=== PATIENT | male | born 1955 | race Caucasian/White ===

== ENCOUNTER 2020-08-20 16:00 | Inpatient (IN) | payer MEDICARE ==
[2020-08-20] MEDS ORDERED: METHYLPREDNISOLONE INJ 125 MG/2 ML SDV IV ONE (17:17)
[2020-08-20] MEDS ORDERED: IPRATROPIUM/ALBUTEROL 0.5-2.5 MG/3 ML AMPUL NEB ONE (17:17)
--- NOTE | 2020-08-20 17:19 | ER Document Report ---
ED Medical Screen (RME) - General Chief Complaint: Shortness Of Breath Stated Complaint: SHORTNESS OF BREATH,COUGH Time Seen by Provider: 08/20/20 17:03 Mode of Arrival: Wheelchair Information source: Patient Notes: Patient is a 64-year-old male comes emergency room complaining of increasing shortness of breath. He is accompanied by his who states that approximately 11 days ago he was having fevers he had a coronavirus test done and found out he was positive for coronavirus 11 days ago. Patient states he has felt really bad over the past several days he had fever up until 2 days ago 1 that seems to have gone away. He states his breathing has gotten increasingly worse. He is having increased shortness of breath nonproductive cough. Short distance of walking makes him short of breath as well. Patient does state that he is up-to-date on his flu vaccine as well as his pneumonia vaccine. Patient is an insulin-dependent diabetic and also uses Trulicity. Has other history of hypertension as well. Patient stopped smoking 15 years ago. Patient is also currently taking amoxicillin. These primary care provider called him in Augmentin for sinus disease that he had approximately 4 5 days ago. Physical examination: Patient is a well-nourished well-developed 64-year-old male though no apparent distress does appear ill. Cardiac: Patient has a tachycardic rate on monitor of 105 bpm. Lungs: Bilateral breath sounds are decreased throughout patient has faint inspiratory expiratory wheeze noted. No coarse rhonchi is heard on auscultation at this time. Abdomen: Bowel sounds present 4 quads nontender to palpate. I have greeted and performed a rapid initial assessment of this patient. A comprehensive ED assessment and evaluation of the patient, analysis of test results and completion of the medical decision making process will be conducted by additional ED providers. Dictation of this chart was performed using voice recognition software; therefore, there may be some unintended grammatical errors. Physical Exam - Vital signs Vitals: Temp Pulse Resp BP Pulse Ox 98.3 F 105 H 20 118/71 90 L 08/20/20 17:01 08/20/20 17:01 08/20/20 17:01 08/20/20 17:01 08/20/20 17:01 Course - Vital Signs Vital signs: Temp Pulse Resp BP Pulse Ox 98.3 F 105 H 20 118/71 90 L 08/20/20 17:01 08/20/20 17:01 08/20/20 17:01 08/20/20 17:01 08/20/20 17:01
--- NOTE | 2020-08-20 18:28 | RADIOLOGY REPORT (SQ) ---
EXAM DESCRIPTION: CHEST SINGLE VIEW IMAGES COMPLETED DATE/TIME: 08/20/2020 6:18 pm REASON FOR STUDY: SOB/Hypoxic/COVID+ COMPARISON: None. EXAM PARAMETERS: NUMBER OF VIEWS: One view. TECHNIQUE: Single frontal radiographic view of the chest acquired. RADIATION DOSE: NA LIMITATIONS: None. FINDINGS: LUNGS AND PLEURA: Parenchymal opacities at the left base. Right lung is clear. No effusi ons. MEDIASTINUM AND HILAR STRUCTURES: No masses. Contour normal. HEART AND VASCULAR STRUCTURES: Heart normal in size. Normal vasculature. BONES: No acute findings. HARDWARE: None in the chest. OTHER: No other significant finding. IMPRESSION: Left basilar opacities consistent with covid 19. TECHNICAL DOCUMENTATION: JOB ID: [id number] [id number]- All Rights Reserved Reading location - IP/workstation name: [email or web address]
--- NOTE | 2020-08-20 19:08 | EKG REPORT ---
SEVERITY:- BORDERLINE ECG - SINUS RHYTHM BORDERLINE IVCD WITH LAD : Confirmed by: Sergey Bolivar MD 20-Aug-2020 19:06:50
[2020-08-20 19:34] LABS: ABSOLUTE EOSINOPHILS # (AUTO) 0.1 10^3/uL (0.0-0.6); ABSOLUTE LYMPHOCYTES (AUTO) 0.6 10^3/uL (0.5-4.7); ABSOLUTE MONOCYTES (AUTO) 0.3 10^3/uL (0.1-1.4); ABSOLUTE NEUT (AUTO) 4.5 10^3/uL (1.7-8.2); BASOPHILS % (AUTO) 0.1 % (0-2); EOSINOPHILS % (AUTO) 1.5 % (0-6); HEMATOCRIT 40.1 % (37.9-51.0); HEMOGLOBIN 13.4 g/dL (13.5-17.0); LYMPHOCYTES % (AUTO) 10.8 % (13-45); MEAN CORPUSCULAR HEMOGLOBIN 26.8 pg (27.0-33.4); MEAN CORPUSCULAR HGB CONC 33.5 g/dL (32.0-36.0); MEAN CORPUSCULAR VOLUME 80 fl (80-97); MONOCYTES % (AUTO) 5.5 % (3-13); PLATELET COUNT 307 10^3/uL (150-450); RED BLOOD COUNT 5.01 10^6/uL (4.35-5.55); RED CELL DISTRIBUTION WIDTH 15.8 % (11.5-14.0); SEGMENTED NEUTROPHILS % (AUTO) 82.1 % (42-78); TOTAL CELLS COUNTED % (AUTO) 100 %; WHITE BLOOD COUNT 5.5 10^3/uL (4.0-10.5)
[2020-08-20] MEDS ORDERED: NORMAL SALINE 1000 ML 1,000 ML IV ONE (19:46)
[2020-08-20 19:48] LABS: ALBUMIN 3.6 g/dL (3.5-5.0); ALKALINE PHOSPHATASE 75 U/L (38-126); ANION GAP 11 (5-19); ASPARTATE AMINO TRANSFERASE 29 U/L (17-59); BILIRUBIN,DIRECT 0.2 mg/dL (0.0-0.4); BILIRUBIN,TOTAL 0.7 mg/dL (0.2-1.3); BLOOD UREA NITROGEN 15 mg/dL (7-20); CALCIUM 8.4 mg/dL (8.4-10.2); CARBON DIOXIDE 24 mmol/L (22-30); CHLORIDE 96 mmol/L (98-107); GLUCOSE 104 mg/dL (75-110); TOTAL PROTEIN 6.7 g/dL (6.3-8.2)
--- NOTE | 2020-08-20 19:51 | ER Document Report ---
ED Respiratory Problem - General Chief Complaint: Shortness Of Breath Stated Complaint: SHORTNESS OF BREATH,COUGH Time Seen by Provider: 08/20/20 17:03 Mode of Arrival: Wheelchair - HPI Notes: Patient is a 64-year-old male with a past medical history of cardiac stent placement who presents with shortness of breath and cough. Patient states he has had shortness of breath for over a week. He was Covid tested last Sunday and was just called with a positive result. His also had Covid. States he was doing well but the past several days, his shortness of breath worsened. He is very short of breath with ambulation. He is fatigued. He has chills. He had a T-max of 101. He denies any chest pain. He has had some diarrhea. No nausea or vomiting. No loss of taste or smell. - Related Data Allergies/Adverse Reactions: No Known Allergies Allergy (Verified 08/20/20 19:10) Past Medical History - General Information source: Patient - Social History Smoking Status: Former Smoker Family History: Reviewed & Not Pertinent - Past Medical History Cardiac Medical History: Reports: Hx Hypertension Endocrine Medical History: Reports: Hx Diabetes Mellitus Type 2 Past Surgical History: Reports: Hx Cardiac Surgery - stents x2 Review of Systems - Review of Systems Notes: CONSTITUTIONAL: Positive for fever, chills, fatigue. SKIN: No rash. HENT: No sinus congestion. EYES: No recent vision problems or eye pain. CARDIOVASCULAR: No chest pain or edema. RESPIRATORY: Positive for cough and shortness of breath. GASTROINTESTINAL: No abdominal pain. Positive for diarrhea. GENITOURINARY: No dysuria. MUSCULOSKELETAL: No joint pain or swelling. LYMPHATIC: No swollen glands. NEUROLOGIC: No seizures. No headache, focal weakness or sensory changes. HEMATOLOGIC: No unusual bruising or bleeding. PSYCHIATRIC: No depression or anxiety. Physical Exam - Vital signs Vitals: Temp Pulse Resp BP Pulse Ox 98.3 F 105 H 20 118/71 90 L 08/20/20 17:01 08/20/20 17:01 08/20/20 17:01 08/20/20 17:01 08/20/20 17:01 - General Notes: VITAL SIGNS: Hypoxic on room air. GENERAL: No acute distress, non-toxic appearance. HEAD: Normal with no signs of head trauma. EYES: EOMI, conjunctiva normal, no discharge. EARS: Hearing grossly intact. NECK: Normal range of motion, no tenderness CHEST: Clear breath sounds bilaterally. No wheezes, rales, or rhonchi. CARDIAC: Regular rate and rhythm. S1 and S2, without murmurs, gallops, or rubs. VASCULAR: No Edema. ABDOMEN: Normal and soft with no tenderness, no masses or pulsatile masses. MUSCULOSKELETAL: Good range of motion of all major joints. Extremities without clubbing, cyanosis or edema. NEUROLOGICAL: Alert and oriented x 3. No focal sensory or strength deficits. Speech normal. Follows commands appropriately. SKIN: Normal appearance with no rashes or lesions. Course - Re-evaluation Re-evalutation: 08/20/20 19:51 Patient's x-ray is consistent with Covid. He is on 4 L nasal cannula. He is alert and oriented and mentating appropriately. Patient will need to be admitted to the hospital for treatment. Him and his are very agreeable to this. I will discuss with the hospitalist. He received steroids from triage. Patient will given a small fluid bolus as he states he has not drank anything all day. Awaiting hospitalist evaluation. Patient will be signed out to my colleague at the end of my shift. Did have a slightly elevated troponin. He has no chest pain. His EKG is unremarkable. I will repeat a troponin. 08/20/20 20:29 - Vital Signs Vital signs: Temp Pulse Resp BP Pulse Ox 97.4 F 59 L 22 H 108/58 L 90 L 08/26/20 13:39 08/26/20 13:39 08/26/20 13:39 08/26/20 13:39 08/26/20 13:39 - Laboratory Result Diagrams: 08/26/20 05:21 08/26/20 05:21 Laboratory results interpreted by me: 08/20/20 08/20/20 08/20/20 18:58 18:58 18:58 Hgb 13.4 L MCH 26.8 L RDW 15.8 H Lymph % (Auto) 10.8 L Seg Neutrophils % 82.1 H D-Dimer Sodium 131.1 L Chloride 96 L POC Glucose COVID-19 ([facility]) DETECTED A 08/20/20 08/20/20 18:58 21:49 Hgb MCH RDW Lymph % (Auto) Seg Neutrophils % D-Dimer 0.82 H Sodium Chloride POC Glucose 149 H COVID-19 ([facility]) - Diagnostic Test Radiology reviewed: Image reviewed, Reports reviewed - EKG Interpretation by Me EKG shows normal: Sinus rhythm Rate: Normal Rhythm: NSR When compared to previous EKG there are: Previous EKG unavailable Discharge - Discharge Clinical Impression: Acute respiratory failure due to COVID-19 Condition: Stable Disposition: ADMITTED INPATIENT Admitting Provider: Steven
[2020-08-20 19:55] LABS: A TYPE INFLUENZA AG NEGATIVE (NEGATIVE); B INFLUENZA AG NEGATIVE (NEGATIVE)
[2020-08-20] MEDS ORDERED: ONDANSETRON HCL INJ/PF 4 MG/2 ML SDV IV PRN (20:35)
[2020-08-20] MEDS ORDERED: ACETAMINOPHEN 325 MG TABLET PO PRN (20:35)
[2020-08-20] MEDS ORDERED: AZITHROMYCIN 500 MG in DEXTROSE 5%-WATER 250 ML IV SCH (21:00)
[2020-08-20] MEDS ORDERED: GLUCAGON,HUMAN RECOMB 1 MG INJ IM PRN (21:09)
[2020-08-20] MEDS ORDERED: DEXTROSE 50%-WATER 25 GM/50 ML DISP.SYRIN IV PRN ×2 (21:09)
[2020-08-20] MEDS ORDERED: DEXTROSE 40% GEL 15 GM TUBE PO PRN ×2 (21:09)
--- NOTE | 2020-08-20 21:09 | PDOC H&P ---
History of Present Illness Admission Date/PCP: 08/20/2020 Dr. Cerda in [place] History of Present Illness: FERCHO JOE is a 64 year old male with a history of coronary artery disease, [id number]-[id number] type 2 diabetes mellitus, and hypertension, who smoked for over 35 years but quit 15 years ago, who presents with approximately 1 week of progressive shortness of breath. He said that his tested positive for coronavirus almost 3 weeks ago, and he had been quarantined at home with her at him been checking his temperature every day. He said that a week ago this past Sunday, 12 days ago at this point, he checked his temperature and even though he did not have a fever it was elevated a bit. He went to [facility] and got tested. He said for what ever reason he did not get his test results until this past Sunday, 8 days after he was tested. At that time he was still feeling pretty much okay. He said that he noted a little bit of shortness of breath with exertion but at the time he found out his positive result he still was doing pretty well. No fevers at that time. He said that over the past 5 days he has developed worsening shortness of breath with exertion to the point that he gets short of breath just walking a short distance to his bathroom from his bedroom. He said when he is at rest he feels fine. He has also had some nausea, vomiting, and diarrhea. He was also put on Augmentin a few days ago for possible otitis media, but he said he had had some vomiting a nd diarrhea before he started the Augmentin. He is not really having any nausea now. He has not experienced any body aches or muscle soreness. He has not noticed a loss of sense of taste or smell. When he got to the ER he had an SPO2 of 86% on room air. He was also mildly tachycardic. He said that he had a history of 2 cardiac stents, the most recent was in March of this year. He was supposed to be on aspirin plus some other antiplatelet agent, he does not know the name of it, but he knows he supposed to be on it for at least 1 year with the aspirin. He said he also takes metoprolol twice a day and lisinopril once a day. For his diabetes he takes Trulicity and Synjarda. Past Medical History Cardiac Medical History: Reports: Coronary Artery Disease, Hypertension Endocrine Medical History: Reports: Diabetes Mellitus Type 2 Past Surgical History Past Surgical History: Reports: Coronary Stent - X2, most recent March 2020 Social History Smoking Status: Former Smoker Family History Family History: Reviewed & Not Pertinent Parental Family History Reviewed: Yes Children Family History Reviewed: Yes Sibling(s) Family History Reviewed.: Yes Medication/Allergy Home Medications: Amoxicillin/Potassium Clav [Amox-Clav 875-125 mg Tablet] 1 each PO Q12 MDD FILLED 08/17 FOR 14 DAY SUPPLY 08/20/20 Aspirin [Ecotrin 81 mg EC Tablet] 81 mg PO DAILY 08/20/20 Atorvastatin Calcium [Lipitor 40 mg Tablet] 40 mg PO QHS 08/20/20 Cyclobenzaprine HCl 5 mg PO TIDP PRN 08/20/20 Dulaglutide [Trulicity] 0.75 mg SUBCUT KOLB@1000 08/20/20 Empagliflozin/Metformin HCl [Synjardy Xr 12.5-1,000 mg Tab] 2 each PO QAM 08/20/20 Lisinopril [Prinivil 10 mg Tablet] 20 mg PO DAILY 08/20/20 Metoprolol Tartrate [Lopressor 25 mg Tablet] 12.5 mg PO Q12 08/20/20 Nitroglycerin [Nitrostat 0.4 mg (1/150 Gr) Tabs 25/Bottle] 1 tab SL Q5MP PRN 08/20/20 Omeprazole 40 mg PO BID 08/20/20 Prasugrel HCl [Effient 10 mg Tablet] 10 mg PO DAILY 08/20/20 Allergies/Adverse Reactions: No Known Allergies Allergy (Verified 08/20/20 19:10) Review of Systems All systems: reviewed and no additional remarkable complaints except as stated - All systems were reviewed and were negative except as noted in the HPI Physical Exam Vital Signs: Temp Pulse Resp BP Pulse Ox 98.3 F 105 H 13 112/83 91 L 08/20/20 17:01 08/20/20 17:01 08/20/20 19:01 08/20/20 19:00 08/20/20 19:01 Intake & Output 08/19/20 08/20/20 08/21/20 06:59 06:59 06:59 Weight 99.79 kg General appearance: PRESENT: no acute distress, cooperative Head exam: PRESENT: atraumatic, normocephalic Eye exam: PRESENT: EOMI, PERRLA. ABSENT: conjunctival injection, nystagmus, scleral icterus Ear exam: PRESENT: normal external ear exam Mouth exam: PRESENT: dry mucosa, neck supple Neck exam: PRESENT: full ROM. ABSENT: carotid bruit, JVD, lymphadenopathy, meningismus, tenderness, thyromegaly Respiratory exam: PRESENT: clear to auscultation dilip, symmetrical, unlabored. ABSENT: accessory muscle use, chest wall tenderness, prolonged expiratory phas, rhonchi, tachypnea, wheezes Cardiovascular exam: PRESENT: +S1, +S2, tachycardia Pulses: PRESENT: normal carotid pulses Vascular exam: PRESENT: normal capillary refill GI/Abdominal exam: PRESENT: normal bowel sounds, soft. ABSENT: distended, guarding, rebound, tenderness Extremities exam: ABSENT: clubbing, pedal edema Musculoskeletal exam: PRESENT: normal inspection. ABSENT: deformity Neurological exam: PRESENT: alert, awake, oriented to person, oriented to place, oriented to time, oriented to situation, CN II-XII grossly intact. ABSENT: motor sensory deficit Psychiatric exam: PRESENT: appropriate affect, normal mood Skin exam: PRESENT: dry, warm Results Laboratory Results: 08/20/20 18:58 08/20/20 18:58 08/20/20 08/20/20 18:58 18:58 WBC 5.5 RBC 5.01 Hgb 13.4 L Hct 40.1 MCV 80 MCH 26.8 L MCHC 33.5 RDW 15.8 H Plt Count 307 Seg Neutrophils % 82.1 H Sodium 131.1 L Potassium 4.0 Chloride 96 L Carbon Dioxide 24 Anion Gap 11 BUN 15 Creatinine 0.81 Est GFR ( Amer) > 60 Glucose 104 Calcium 8.4 Total Bilirubin 0.7 AST 29 Alkaline Phosphatase 75 Total Protein 6.7 Albumin 3.6 08/20/20 18:58 Troponin I 0.042 Impressions: Chest X-Ray 08/20/20 17:16 IMPRESSION: Left basilar opacities consistent with covid 19. Assessment and Plan - Diagnosis (1) Acute respiratory failure due to COVID-19 Is this a current diagnosis for this admission?: Yes (2) Pneumonia due to COVID-19 virus Is this a current diagnosis for this admission?: Yes (3) Coronary artery disease Qualifiers: Coronary Disease-Associated Artery/Lesion type: [place] artery [place] vs. 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 senior care use Diabetes mellitus complication status: with circulatory complication Diabetes mellitus complication detail: with other circulatory complications Qualified Code(s): E11.59 - Type 2 diabetes mellitus with other circulatory complications Is this a current diagnosis for this admission?: Yes (5) Hypertension Qualifiers: Hypertension type: essential hypertension Qualified Code(s): I10 - Essential (primary) hypertension Is this a current diagnosis for this admission?: Yes - Plan Summary Summary: With his positive test, chest x-ray findings, and hypoxemia, will start him on Decadron and remdesivir. He already got a dose of Solu-Medrol in the ER so we will start his Decadron tomorrow morning. We will go ahead and see if we can get his remdesivir started tonight. We will also put him empirically on Rocephin and azithromycin to cover for possible coexisting bacterial pneumonia, but I think this is less likely. We will check a D-dimer to see if he needs therapeutic anticoagulation, will start DVT prophylaxis for now. Once his home medications get entered into the EMR by pharmacy we will get those ordered for him. Currently on 4 L per nasal cannula. Will monitor pulse oximetry to assess for changes in his oxygen demand. We will cover him with a sliding scale for now. - Time Time Spent with patient: 35 or more minutes Anticipated Discharge Disposition: Unknown Anticipated Discharge Timeframe: Unknown - Inpatient Certification Based on my medical assessment, after consideration of the patient's comorbidities, presenting symptoms, or acuity I expect that the services needed warrant INPATIENT care.: Yes I certify that my determination is in accordance with my understanding of Medicare's requirements for reasonable and necessary INPATIENT services [42 CFR 412.3e].: Yes Medical Necessity: Significant Comorbidiites Make Outpatient Treatment Too Risky, Need Close Monitoring Due to Risk of Patient Decompensation, Need For Continuous Telemetry Monitoring, Need for IV Antibiotics, Risk of Complication if Not Cared For in Hospital
[2020-08-20] MEDS: CEFTRIAXONE 1 GM/D5W RTU 1 GM/50 ML RTUPB IV SCH (21:15)
[2020-08-20] MEDS ORDERED: AZITHROMYCIN INJ 500 MG VIAL IV ONE (21:44)
[2020-08-20] MEDS: AZITHROMYCIN 500 MG in DEXTROSE 5%-WATER 250 ML IV SCH (21:56)
[2020-08-20] MEDS: INSULIN LISPRO 100 UNIT/ML 3 ML VIAL SUBCUT SCH (21:59)
[2020-08-20] MEDS ORDERED: REMDESIVIR 100 MG in NORMAL SALINE 250 ML IV SCH (22:00)
[2020-08-20] MEDS ORDERED: REMDESIVIR 200 MG in NORMAL SALINE 250 ML IV ONE (22:30)
[2020-08-21 06:24] LABS: HEMATOCRIT 36.3 % (37.9-51.0); HEMOGLOBIN 12.4 g/dL (13.5-17.0); MEAN CORPUSCULAR HEMOGLOBIN 27.3 pg (27.0-33.4); MEAN CORPUSCULAR HGB CONC 34.2 g/dL (32.0-36.0); MEAN CORPUSCULAR VOLUME 80 fl (80-97); PLATELET COUNT 250 10^3/uL (150-450); RED BLOOD COUNT 4.56 10^6/uL (4.35-5.55); RED CELL DISTRIBUTION WIDTH 16.1 % (11.5-14.0)
[2020-08-21 06:50] LABS: ALBUMIN 3.2 g/dL (3.5-5.0); ALKALINE PHOSPHATASE 66 U/L (38-126); ANION GAP 9 (5-19); ASPARTATE AMINO TRANSFERASE 21 U/L (17-59); BILIRUBIN,DIRECT 0.1 mg/dL (0.0-0.4); BILIRUBIN,TOTAL 0.4 mg/dL (0.2-1.3); BLOOD UREA NITROGEN 15 mg/dL (7-20); CALCIUM 8.3 mg/dL (8.4-10.2); CARBON DIOXIDE 24 mmol/L (22-30); CHLORIDE 101 mmol/L (98-107); GLUCOSE 167 mg/dL (75-110); POTASSIUM 4.8 mmol/L (3.6-5.0); TOTAL PROTEIN 6.3 g/dL (6.3-8.2)
[2020-08-21 07:06] LABS: C-REACTIVE PROTEIN 143.7 mg/L (<10.0)
[2020-08-21 07:41] LABS: ABSOLUTE LYMPHOCYTES# (MANUAL) 0.3 10^3/uL (0.5-4.7); ABSOLUTE MONOCYTES # (MANUAL) 0.1 10^3/uL (0.1-1.4); BASOPHILS % (MANUAL) 0 % (0-2); EOSINOPHILS % (MANUAL) 0 % (0-6); LYMPHOCYTES % (MANUAL) 16 % (13-45); MONOCYTES % (MANUAL) 4 % (3-13); SEGMENTED NEUTROPHILS % (MAN) 80 % (42-78); TOTAL CELLS COUNTED 50
[2020-08-21 07:42] LABS: ANISOCYTOSIS 1+; HYPOCHROMASIA SLIGHT; POLYCHROMASIA SLIGHT
[2020-08-21 07:43] LABS: PLATELET COMMENT ADEQUATE; WHITE BLOOD COUNT 1.6 10^3/uL (4.0-10.5)
[2020-08-21] MEDS: INSULIN LISPRO 100 UNIT/ML 3 ML VIAL SUBCUT SCH ×4 (09:19→21:51)
[2020-08-21] MEDS: DEXAMETHASONE SOD PHOSPHATE INJ 4 MG/1 ML VIAL IV SCH (09:20)
[2020-08-21] MEDS: ENOXAPARIN SODIUM INJ 40 MG/0.4 ML DISP.SYRIN SUBCUT SCH (09:20)
[2020-08-21] MEDS ORDERED: DEXAMETHASONE SOD PHOS INJ 10 MG/1 ML VIAL IV SCH (10:00)
[2020-08-21] MEDS: ASPIRIN 81 MG TABLET, ENT COATED PO SCH (12:29)
[2020-08-21] MEDS: PRASUGREL HCL 10 MG TABLET PO SCH (13:17)
--- NOTE | 2020-08-21 15:24 | PDOC PROGRESS REPORT ---
Subjective Date:: 08/21/20 Subjective:: FERCHO JOE is a 64 year old male with a history of coronary artery disease , wpv-qhvylht-[id number] type 2 diabetes mellitus, and hypertension, who smoked for over 35 years but quit 15 years ago, who presents with approximately 1 week of progressive shortness of breath. He said that his tested positive for coronavirus almost 3 weeks ago, and he had been quarantined at home with her at him been checking his temperature every day. He said that a week ago this past Sunday, 12 days ago at this point, he checked his temperature and even though he did not have a fever it was elevated a bit. He went to [facility] and got tested. He said for what ever reason he did not get his test results until this past Sunday, 8 days after he was tested. At that time he was still feeling pretty much okay. He said that he noted a little bit of shortness of breath with exertion but at the time he found out his positive result he still was doing pretty well. No fevers at that time. He said that over the past 5 days he has developed worsening shortness of breath with exertion to the point that he gets short of breath just walking a short distance to his bathroom from his bedroom. He said when he is at rest he feels fine. He has also had some nausea, vomiting, and diarrhea. He was also put on Augmentin a few days ago for possible otitis media, but he said he had had some vomiting and diarrhea before he started the Augmentin. He is not really having any nausea now. He has not experienced any body aches or muscle soreness. He has not noticed a loss of s ense of taste or smell. When he got to the ER he had an SPO2 of 86% on room air. He was also mildly tachycardic. He said that he had a history of 2 cardiac stents, the most recent was in March of this year. He was supposed to be on aspirin plus some other antiplatelet agent, he does not know the name of it, but he knows he supposed to be on it for at least 1 year with the aspirin. He said he also takes metoprolol twice a day and lisinopril once a day. For his diabetes he takes Trulicity and Synjarda. D2 08/21/20 He was seen and examined at bedside. He is currently on 4L of [place] saturating 96%. He reports that he is breathing much better and his appetite is already improved. He will receive his first dose of Remdesivir today. He is also on dexamethasone. I asked him if he wants me to update anyone of his family but he declined and said he will talk to them himself. Reason For Visit: ACUTE RESPIRATORY FAILURE DUE TO COVID 19 Physical Exam Vital Signs: Temp Pulse Resp BP Pulse Ox 97.4 F 88 22 H 108/65 90 L 08/21/20 11:08 08/21/20 11:08 08/21/20 11:08 08/21/20 11:08 08/21/20 11:08 Intake & Output 08/20/20 08/21/20 08/22/20 06:59 06:59 06:59 Intake Total 1550 800 Balance 1550 800 Weight 94.3 kg General appearance: PRESENT: cooperative, mild distress, other - On 4 L of nasal cannula Head exam: PRESENT: atraumatic, normocephalic Eye exam: PRESENT: EOMI, PERRLA Mouth exam: PRESENT: moist Neck exam: PRESENT: full ROM Respiratory exam: PRESENT: rales, symmetrical, unlabored Cardiovascular exam: PRESENT: RRR, +S1, +S2 Pulses: PRESENT: +2 pedal pulses bilateral GI/Abdominal exam: PRESENT: normal bowel sounds, soft. ABSENT: rebound, tenderness Extremities exam: PRESENT: full ROM Musculoskeletal exam: PRESENT: full ROM Neurological exam: PRESENT: alert, awake, oriented to person, oriented to place, oriented to time, oriented to situation Psychiatric exam: PRESENT: normal mood Skin exam: PRESENT: normal color Results Laboratory Results: 08/21/20 06:11 08/21/20 06:11 08/20/20 08/20/20 08/21/20 18:58 18:58 06:11 WBC 5.5 1.6 L D RBC 5.01 4.56 Hgb 13.4 L 12.4 L Hct 40.1 36.3 L MCV 80 80 MCH 26.8 L 27.3 MCHC 33.5 34.2 RDW 15.8 H 16.1 H Plt Count 307 250 Seg Neutrophils % 82.1 H Not Reportable Sodium 131.1 L Potassium 4.0 Chloride 96 L Carbon Dioxide 24 Anion Gap 11 BUN 15 Creatinine 0.81 Est GFR ( Amer) > 60 Glucose 104 Calcium 8.4 Ferritin Total Bilirubin 0.7 AST 29 Alkaline Phosphatase 75 C-Reactive Protein Total Protein 6.7 Albumin 3.6 08/21/20 06:11 WBC RBC Hgb Hct MCV MCH MCHC RDW Plt Count Seg Neutrophils % Sodium 133.5 L Potassium 4.8 Chloride 101 Carbon Dioxide 24 Anion Gap 9 BUN 15 Creatinine 0.71 Est GFR ( Amer) > 60 Glucose 167 H Calcium 8.3 L Ferritin 440.00 Total Bilirubin 0.4 AST 21 Alkaline Phosphatase 66 C-Reactive Protein 143.7 H Total Protein 6.3 Albumin 3.2 L 08/20/20 08/21/20 18:58 00:17 Troponin I 0.042 0.032 Impressions: Chest X-Ray 08/20/20 17:16 IMPRESSION: Left basilar opacities consistent with covid 19. Assessment and Plan - Diagnosis (1) Acute respiratory failure due to COVID-19 Is this a current diagnosis for this admission?: Yes Plan: Came in due to shortness of breath with a O2 saturation of 86% on room air -Improved with 4 L of O2 support via nasal cannula -Covid positive -CXR shows left basilar opacities consistent with COVID-19 -He is on remdesivir and dexamethasone for Covid -Ceftriaxone and azithromycin for concomitant bacterial pneumonia -Continue O2 support via nasal cannula (2) Pneumonia due to COVID-19 virus Is this a current diagnosis for this admission?: Yes Plan: -Confirmed Covid pneumonia testing 2 weeks prior -X-ray consistent with COVID-19 pneumonia - CRP 143.7 -Ferritin 440 -D-dimer 0.62 -On remdesivir and dexamethasone -Lovenox for DVT prophylaxis -Ceftriaxone and azithromycin for possible CAP -Continue O2 support -He is full code (3) Coronary artery disease Qualifiers: Coronary Disease-Associated Artery/Lesion type: [place] artery [place] vs. transplanted heart: [place] heart Associated angina: without angina Qualified Code(s): I25.10 - Atherosclerotic heart disease of [place] coronary artery without angina pectoris Is this a current diagnosis for this admission?: Yes Plan: -Recently underwent stent placement in March -On dual antiplatelet therapy with Effient and aspirin -Continue Lipitor, lisinopril, metoprolol -Troponin 0.0 42 down to 0.0 32 -EKG no ST elevation (4) Hypertension Qualifiers: Hypertension type: essential hypertension Qualified Code(s): I10 - Essential (primary) hypertension Is this a current diagnosis for this admission?: Yes Plan: -Continue lisinopril and metoprolol (5) Type 2 diabetes mellitus 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 We will hold this medications while he is admitted -Accu-Cheks and hypoglycemia protocol - Time Time Spent with patient: 25-34 minutes Medications reviewed and adjusted accordingly: Yes Anticipated Discharge Disposition: Home, Self Care Anticipated Discharge Timeframe: tbd
[2020-08-21] MEDS: ATORVASTATIN CALCIUM 40 MG TABLET PO SCH (21:51)
[2020-08-21] MEDS: METOPROLOL TARTRATE 25 MG TABLET PO SCH (21:51)
[2020-08-21] MEDS: CEFTRIAXONE 1 GM/D5W RTU 1 GM/50 ML RTUPB IV SCH (21:53)
[2020-08-21] MEDS: REMDESIVIR 100 MG in NORMAL SALINE 250 ML IV SCH (21:53)
[2020-08-21] MEDS ORDERED: AZITHROMYCIN INJ 500 MG VIAL IV ONE (23:04)
[2020-08-21] MEDS: AZITHROMYCIN 500 MG in DEXTROSE 5%-WATER 250 ML IV SCH (23:25)
[2020-08-22 06:24] LABS: ABSOLUTE LYMPHOCYTES (AUTO) 0.8 10^3/uL (0.5-4.7); ABSOLUTE MONOCYTES (AUTO) 0.5 10^3/uL (0.1-1.4); ABSOLUTE NEUT (AUTO) 6.4 10^3/uL (1.7-8.2); EOSINOPHILS % (AUTO) 0.4 % (0-6); HEMATOCRIT 35.5 % (37.9-51.0); LYMPHOCYTES % (AUTO) 10.8 % (13-45); MEAN CORPUSCULAR HEMOGLOBIN 27.1 pg (27.0-33.4); MEAN CORPUSCULAR HGB CONC 33.9 g/dL (32.0-36.0); MEAN CORPUSCULAR VOLUME 80 fl (80-97); MONOCYTES % (AUTO) 6.3 % (3-13); PLATELET COUNT 342 10^3/uL (150-450); RED BLOOD COUNT 4.43 10^6/uL (4.35-5.55); RED CELL DISTRIBUTION WIDTH 15.7 % (11.5-14.0); SEGMENTED NEUTROPHILS % (AUTO) 82.5 % (42-78); TOTAL CELLS COUNTED % (AUTO) 100 %; WHITE BLOOD COUNT 7.8 10^3/uL (4.0-10.5)
[2020-08-22 06:39] LABS: ALBUMIN 3.2 g/dL (3.5-5.0); ALKALINE PHOSPHATASE 57 U/L (38-126); ANION GAP 9 (5-19); ASPARTATE AMINO TRANSFERASE 21 U/L (17-59); BILIRUBIN,DIRECT 0.2 mg/dL (0.0-0.4); BILIRUBIN,TOTAL 0.5 mg/dL (0.2-1.3); BLOOD UREA NITROGEN 19 mg/dL (7-20); C-REACTIVE PROTEIN 42.8 mg/L (<10.0); CALCIUM 8.5 mg/dL (8.4-10.2); CARBON DIOXIDE 24 mmol/L (22-30); CHLORIDE 103 mmol/L (98-107); GLUCOSE 141 mg/dL (75-110); POTASSIUM 4.2 mmol/L (3.6-5.0); TOTAL PROTEIN 6.1 g/dL (6.3-8.2)
[2020-08-22] MEDS: INSULIN LISPRO 100 UNIT/ML 3 ML VIAL SUBCUT SCH ×4 (09:58→22:09)
[2020-08-22] MEDS ORDERED: ALBUTEROL SULFATE HFA (90 MCG/PUFF) 8 GM MDI IH PRN (10:05)
[2020-08-22] MEDS: DEXAMETHASONE SOD PHOSPHATE INJ 4 MG/1 ML VIAL IV SCH (11:44)
[2020-08-22] MEDS: LISINOPRIL 10 MG TABLET PO SCH (11:45)
[2020-08-22] MEDS: METOPROLOL TARTRATE 25 MG TABLET PO SCH ×2 (11:45→22:09)
[2020-08-22] MEDS: ASPIRIN 81 MG TABLET, ENT COATED PO SCH (11:45)
[2020-08-22] MEDS: ENOXAPARIN SODIUM INJ 40 MG/0.4 ML DISP.SYRIN SUBCUT SCH (11:47)
[2020-08-22] MEDS: PRASUGREL HCL 10 MG TABLET PO SCH (11:50)
--- NOTE | 2020-08-22 12:51 | PDOC PROGRESS REPORT ---
Subjective Date:: 08/22/20 Subjective:: FERCHO JOE is a 64 year old male with a history of coronary artery disease , lfl-meffdhj-btxgbdkee type 2 diabetes mellitus, and hypertension, who smoked for over 35 years but quit 15 years ago, who presents with approximately 1 week of progressive shortness of breath. He said that his tested positive for coronavirus almost 3 weeks ago, and he had been quarantined at home with her at him been checking his temperature every day. He said that a week ago this past Sunday, 12 days ago at this point, he checked his temperature and even though he did not have a fever it was elevated a bit. He went to [facility] and got tested. He said for what ever reason he did not get his test results until this past Sunday, 8 days after he was tested. At that time he was still feeling pretty much okay. He said that he noted a little bit of shortness of breath with exertion but at the time he found out his positive result he still was doing pretty well. No fevers at that time. He said that over the past 5 days he has developed worsening shortness of breath with exertion to the point that he gets short of breath just walking a short distance to his bathroom from his bedroom. He said when he is at rest he feels fine. He has also had some nausea, vomiting, and diarrhea. He was also put on Augmentin a few days ago for possible otitis media, but he said he had had some vomiting and diarrhea before he started the Augmentin. He is not really having any nausea now. He has not experienced any body aches or muscle soreness. He has not noticed a loss of s ense of taste or smell. When he got to the ER he had an SPO2 of 86% on room air. He was also mildly tachycardic. He said that he had a history of 2 cardiac stents, the most recent was in March of this year. He was supposed to be on aspirin plus some other antiplatelet agent, he does not know the name of it, but he knows he supposed to be on it for at least 1 year with the aspirin. He said he also takes metoprolol twice a day and lisinopril once a day. For his diabetes he takes Trulicity and Synjarda. D2 08/21/20 He was seen and examined at bedside. He is currently on 4L of NC saturating 96%. He reports that he is breathing much better and his appetite is already improved. He will receive his first dose of Remdesivir today. He is also on dexamethasone. I asked him if he wants me to update anyone of his family but he declined and said he will talk to them himself. D3 08/22/20 He was seen and examined at bedside. He is down to 2L of O2 via NC saturating 95%. He has some exertional dyspnea but no chest pain or dyspnea at rest. He is afebrile with good appetite. He is on his DAPT effient and aspirin for his recent stent placement. Reason For Visit: ACUTE RESPIRATORY FAILURE DUE TO COVID 19 Physical Exam Vital Signs: Temp Pulse Resp BP Pulse Ox 97.6 F 70 14 134/74 H 92 08/22/20 07:38 08/22/20 07:00 08/22/20 04:28 08/22/20 04:28 08/22/20 04:28 Intake & Output 08/21/20 08/22/20 08/23/20 06:59 06:59 06:59 Intake Total 1550 2400 Output Total 100 Balance 1550 2300 Weight 94.3 kg 94.9 kg General appearance: PRESENT: cooperative, mild distress Head exam: PRESENT: atraumatic, normocephalic Eye exam: PRESENT: EOMI, PERRLA Mouth exam: PRESENT: moist Neck exam: PRESENT: full ROM Respiratory exam: PRESENT: clear to auscultation dilip, symmetrical, unlabored Cardiovascular exam: PRESENT: RRR, +S1, +S2 Vascular exam: PRESENT: normal capillary refill GI/Abdominal exam: PRESENT: normal bowel sounds, soft. ABSENT: rebound, tenderness Extremities exam: PRESENT: full ROM Musculoskeletal exam: PRESENT: full ROM Neurological exam: PRESENT: alert, awake, oriented to person, oriented to place, oriented to time, oriented to situation Psychiatric exam: PRESENT: normal mood Skin exam: PRESENT: normal color Results Laboratory Results: 08/22/20 06:00 08/22/20 06:00 08/22/20 08/22/20 06:00 06:00 WBC 7.8 D RBC 4.43 Hgb 12.0 L Hct 35.5 L MCV 80 MCH 27.1 MCHC 33.9 RDW 15.7 H Plt Count 342 Seg Neutrophils % 82.5 H Sodium 136.1 L Potassium 4.2 Chloride 103 Carbon Dioxide 24 Anion Gap 9 BUN 19 Creatinine 0.72 Est GFR ( Amer) > 60 Glucose 141 H Calcium 8.5 Ferritin 369.00 Total Bilirubin 0.5 AST 21 Alkaline Phosphatase 57 C-Reactive Protein 42.8 H Total Protein 6.1 L Albumin 3.2 L 08/20/20 08/21/20 18:58 00:17 Troponin I 0.042 0.032 Impressions: Chest X-Ray 08/20/20 17:16 IMPRESSION: Left basilar opacities consistent with covid 19. Assessment and Plan - Diagnosis (1) Acute respiratory failure due to COVID-19 Is this a current diagnosis for this admission?: Yes Plan: Came in due to shortness of breath with a O2 saturation of 86% on room air -Improved with 4 L of O2 support via nasal cannula -Covid positive -CXR shows left basilar opacities consistent with COVID-19 -He is on remdesivir and dexamethasone for Covid -Ceftriaxone and azithromycin for concomitant bacterial pneumonia -Continue O2 support via nasal cannula (2) Pneumonia due to COVID-19 virus Is this a current diagnosis for this admission?: Yes Plan: -Confirmed Covid pneumonia testing 2 weeks prior -X-ray consistent with COVID-19 pneumonia - CRP 143.7 -Ferritin 440 -D-dimer 0.62 -On remdesivir and dexamethasone -Lovenox for DVT prophylaxis -Ceftriaxone and azithromycin for possible CAP -Continue O2 support -He is full code (3) Coronary artery disease Qualifiers: Coronary Disease-Associated Artery/Lesion type: [place] artery [place] vs. transplanted heart: [place] heart Associated angina: without angina Qualified Code(s): I25.10 - Atherosclerotic heart disease of [place] coronary artery without angina pectoris Is this a current diagnosis for this admission?: Yes Plan: -Recently underwent stent placement in March -On dual antiplatelet therapy with Effient and aspirin -Continue Lipitor, lisinopril, metoprolol -Troponin 0.0 42 down to 0.0 32 -EKG no ST elevation (4) Hypertension Qualifiers: Hypertension type: essential hypertension Qualified Code(s): I10 - Essential (primary) hypertension Is this a current diagnosis for this admission?: Yes Plan: -Continue lisinopril and metoprolol (5) Type 2 diabetes mellitus Qualifiers: Diabetes mellitus usp insulin use: without terminal make up operator use Diabetes mellitus complication status: with circulatory complication Diabetes mellitus complication detail: with other circulatory complications Qualified Code(s): E11.59 - Type 2 diabetes mellitus with other circulatory complications Is this a current diagnosis for this admission?: Yes Plan: -Sliding scale insulin -He was on Trulicity and empagliflozin/Metformin home. We will hold this medications while he is admitted -Accu-Cheks and hypoglycemia protocol (6) Leukopenia Qualifiers: Leukopenia type: lymphocytopenia Qualified Code(s): D72.810 - Lymphocytopenia Is this a current diagnosis for this admission?: Yes Plan: - WBC count 1.6 mainly lympophenia and mild neutropenia - this is likely 2/2 to his COVID - he is on ceftriaxone and azithro - will continue to monitor - Time Time Spent with patient: 25-34 minutes Medications reviewed and adjusted accordingly: Yes Anticipated Discharge Disposition: Home, Self Care Anticipated Discharge Timeframe: TBD
[2020-08-22] MEDS ORDERED: AZITHROMYCIN 500 MG in DEXTROSE 5%-WATER 250 ML IV SCH (21:00)
[2020-08-22] MEDS: ATORVASTATIN CALCIUM 40 MG TABLET PO SCH (22:09)
[2020-08-22] MEDS: REMDESIVIR 100 MG in NORMAL SALINE 250 ML IV SCH (22:10)
[2020-08-22] MEDS: CEFTRIAXONE 1 GM/D5W RTU 1 GM/50 ML RTUPB IV SCH (22:10)
[2020-08-23 07:11] LABS: ABSOLUTE EOSINOPHILS # (AUTO) 0.1 10^3/uL (0.0-0.6); ABSOLUTE LYMPHOCYTES (AUTO) 1.1 10^3/uL (0.5-4.7); ABSOLUTE MONOCYTES (AUTO) 0.5 10^3/uL (0.1-1.4); ABSOLUTE NEUT (AUTO) 5.7 10^3/uL (1.7-8.2); BASOPHILS % (AUTO) 0.1 % (0-2); HEMOGLOBIN 12.1 g/dL (13.5-17.0); LYMPHOCYTES % (AUTO) 14.6 % (13-45); MEAN CORPUSCULAR HEMOGLOBIN 27.2 pg (27.0-33.4); MEAN CORPUSCULAR HGB CONC 33.7 g/dL (32.0-36.0); MEAN CORPUSCULAR VOLUME 81 fl (80-97); MONOCYTES % (AUTO) 6.6 % (3-13); PLATELET COUNT 358 10^3/uL (150-450); RED BLOOD COUNT 4.46 10^6/uL (4.35-5.55); RED CELL DISTRIBUTION WIDTH 15.8 % (11.5-14.0); SEGMENTED NEUTROPHILS % (AUTO) 77.7 % (42-78); TOTAL CELLS COUNTED % (AUTO) 100 %; WHITE BLOOD COUNT 7.3 10^3/uL (4.0-10.5)
[2020-08-23 07:33] LABS: ALBUMIN 3.1 g/dL (3.5-5.0); ALKALINE PHOSPHATASE 58 U/L (38-126); ANION GAP 11 (5-19); ASPARTATE AMINO TRANSFERASE 22 U/L (17-59); BILIRUBIN,DIRECT 0.2 mg/dL (0.0-0.4); BILIRUBIN,TOTAL 0.6 mg/dL (0.2-1.3); BLOOD UREA NITROGEN 15 mg/dL (7-20); C-REACTIVE PROTEIN 29.7 mg/L (<10.0); CALCIUM 8.7 mg/dL (8.4-10.2); CARBON DIOXIDE 19 mmol/L (22-30); CHLORIDE 106 mmol/L (98-107); GLUCOSE 110 mg/dL (75-110); POTASSIUM 4.7 mmol/L (3.6-5.0)
[2020-08-23] MEDS: INSULIN LISPRO 100 UNIT/ML 3 ML VIAL SUBCUT SCH ×4 (09:05→21:44)
[2020-08-23] MEDS: METOPROLOL TARTRATE 25 MG TABLET PO SCH ×2 (10:16→21:44)
[2020-08-23] MEDS: ASPIRIN 81 MG TABLET, ENT COATED PO SCH (10:17)
[2020-08-23] MEDS: LISINOPRIL 10 MG TABLET PO SCH (10:17)
[2020-08-23] MEDS: ENOXAPARIN SODIUM INJ 40 MG/0.4 ML DISP.SYRIN SUBCUT SCH (10:17)
[2020-08-23] MEDS: DEXAMETHASONE SOD PHOSPHATE INJ 4 MG/1 ML VIAL IV SCH (10:17)
[2020-08-23] MEDS: PRASUGREL HCL 10 MG TABLET PO SCH (10:17)
[2020-08-23 12:04] LABS: PATH REVIEW PATHOLOGIST REVIEWED
--- NOTE | 2020-08-23 16:05 | PDOC PROGRESS REPORT ---
Subjective Date:: 08/23/20 Subjective:: FERCHO JOE is a 64 year old male with a history of coronary artery disease , qlf-kqtdtcv-czfgctkew type 2 diabetes mellitus, and hypertension, who smoked for over 35 years but quit 15 years ago, who presents with approximately 1 week of progressive shortness of breath. He said that his tested positive for coronavirus almost 3 weeks ago, and he had been quarantined at home with her at him been checking his temperature every day. He said that a week ago this past Sunday, 12 days ago at this point, he checked his temperature and even though he did not have a fever it was elevated a bit. He went to [facility] and got tested. He said for what ever reason he did not get his test results until this past Sunday, 8 days after he was tested. At that time he was still feeling pretty much okay. He said that he noted a little bit of shortness of breath with exertion but at the time he found out his positive result he still was doing pretty well. No fevers at that time. He said that over the past 5 days he has developed worsening shortness of breath with exertion to the point that he gets short of breath just walking a short distance to his bathroom from his bedroom. He said when he is at rest he feels fine. He has also had some nausea, vomiting, and diarrhea. He was also put on Augmentin a few days ago for possible otitis media, but he said he had had some vomiting and diarrhea before he started the Augmentin. He is not really having any nausea now. He has not experienced any body aches or muscle soreness. He has not noticed a loss of s ense of taste or smell. When he got to the ER he had an SPO2 of 86% on room air. He was also mildly tachycardic. He said that he had a history of 2 cardiac stents, the most recent was in March of this year. He was supposed to be on aspirin plus some other antiplatelet agent, he does not know the name of it, but he knows he supposed to be on it for at least 1 year with the aspirin. He said he also takes metoprolol twice a day and lisinopril once a day. For his diabetes he takes Trulicity and Synjarda. D2 08/21/20 He was seen and examined at bedside. He is currently on 4L of NC saturating 96%. He reports that he is breathing much better and his appetite is already improved. He will receive his first dose of Remdesivir today. He is also on dexamethasone. I asked him if he wants me to update anyone of his family but he declined and said he will talk to them himself. D3 08/22/20 He was seen and examined at bedside. He is down to 2L of O2 via NC saturating 95%. He has some exertional dyspnea but no chest pain or dyspnea at rest. He is afebrile with good appetite. He is on his DAPT effient and aspirin for his recent stent placement. D4 08/23/20 He was seen and examined at bedside. He is sitting on a chair comfortable looking. He is still on 2L of nasal cannula. He denies any new symptoms. His appetite is good and he ambulated around the room. He is on D3 of remdesivir and dexamethasone. Reason For Visit: ACUTE RESPIRATORY FAILURE DUE TO COVID 19 Physical Exam Vital Signs: Temp Pulse Resp BP Pulse Ox 97.8 F 65 15 107/68 97 08/23/20 11:45 08/23/20 14:00 08/23/20 11:45 08/23/20 11:45 08/23/20 11:45 Intake & Output 08/22/20 08/23/20 08/24/20 06:59 06:59 06:59 Intake Total 2400 2112 Output Total 100 Balance 2300 2112 Weight 94.9 kg 94.6 kg General appearance: PRESENT: cooperative, mild distress Head exam: PRESENT: atraumatic, normocephalic Eye exam: PRESENT: EOMI, PERRLA Mouth exam: PRESENT: moist Neck exam: PRESENT: full ROM Respiratory exam: PRESENT: rales, symmetrical, unlabored. ABSENT: tachypnea, wheezes Cardiovascular exam: PRESENT: RRR, +S1, +S2 GI/Abdominal exam: PRESENT: normal bowel sounds, soft. ABSENT: rebound, tenderness Extremities exam: PRESENT: full ROM Musculoskeletal exam: PRESENT: full ROM Neurological exam: PRESENT: alert, awake, oriented to person, oriented to place, oriented to time, oriented to situation Psychiatric exam: PRESENT: normal mood Skin exam: PRESENT: normal color Results Laboratory Results: 08/23/20 06:13 08/23/20 06:13 08/21/20 08/23/20 08/23/20 06:11 06:13 06:13 WBC 1.6 L D 7.3 RBC 4.46 Hgb 12.1 L Hct 36.0 L MCV 81 MCH 27.2 MCHC 33.7 RDW 15.8 H Plt Count 358 Seg Neutrophils % 77.7 Sodium 135.9 L Potassium 4.7 Chloride 106 Carbon Dioxide 19 L Anion Gap 11 BUN 15 Creatinine 0.57 Est GFR ( Amer) > 60 Glucose 110 Calcium 8.7 Ferritin 293.00 Total Bilirubin 0.6 AST 22 Alkaline Phosphatase 58 C-Reactive Protein 29.7 H Total Protein 6.0 L Albumin 3.1 L 08/20/20 18:58 Throat Throat Culture - Final NORMAL ALCIDES 08/20/20 08/21/20 18:58 00:17 Troponin I 0.042 0.032 Impressions: Chest X-Ray 08/20/20 17:16 IMPRESSION: Left basilar opacities consistent with covid 19. Assessment and Plan - Diagnosis (1) Acute respiratory failure due to COVID-19 Is this a current diagnosis for this admission?: Yes Plan: Came in due to shortness of breath with a O2 saturation of 86% on room air -Improved with 4 L of O2 support via nasal cannula -Covid positive -CXR shows left basilar opacities consistent with COVID-19 -He is on remdesivir and dexamethasone for Covid -blood culture negative. I have stopped his ceftri and azithro -Continue O2 support via nasal cannula wean off as tolerated (2) Pneumonia due to COVID-19 virus Is this a current diagnosis for this admission?: Yes Plan: -Confirmed Covid pneumonia testing 2 weeks prior -X-ray consistent with COVID-19 pneumonia - CRP 143.7 -Ferritin 440 -D-dimer 0.62 -On remdesivir and dexamethasone -Lovenox for DVT prophylaxis -Continue O2 support, wean off as tolerated -He is full code (3) Coronary artery disease Qualifiers: Coronary Disease-Associated Artery/Lesion type: [place] artery [place] vs. transplanted heart: [place] heart Associated angina: without angina Qualified Code(s): I25.10 - Atherosclerotic heart disease of [place] coronary artery without angina pectoris Is this a current diagnosis for this admission?: Yes Plan: -Recently underwent stent placement in March -On dual antiplatelet therapy with Effient and aspirin -Continue Lipitor, lisinopril, metoprolol -Troponin 0.0 42 down to 0.0 32 -EKG no ST elevation (4) Hypertension Qualifiers: Hypertension type: essential hypertension Qualified Code(s): I10 - Essential (primary) hypertension Is this a current diagnosis for this admission?: Yes Plan: -Continue lisinopril and metoprolol (5) Type 2 diabetes mellitus Qualifiers: Diabetes mellitus retirement insulin use: without retirement use Diabetes mellitus complication status: with circulatory complication Diabetes mellitus complication detail: with other circulatory complications Qualified Code(s): E11.59 - Type 2 diabetes mellitus with other circulatory complications Is this a current diagnosis for this admission?: Yes Plan: -BG >200 most of the time but less than 300 - started low dose lantus 10 u daily - continue SSI -He was on Trulicity and empagliflozin/Metformin home. We will hold this medications while he is admitted -Accu-Checks and hypoglycemia protocol (6) Leukopenia Qualifiers: Leukopenia type: lymphocytopenia Qualified Code(s): D72.810 - Lymphocytopenia Is this a current diagnosis for this admission?: Yes Plan: - RESOLVED -WBC count 1.6 mainly lympophenia and mild neutropenia - this is likely 2/2 to his COVID - will continue to monitor - Time Time Spent with patient: 25-34 minutes Medications reviewed and adjusted accordingly: Yes Anticipated Discharge Disposition: Home, Self Care Anticipated Discharge Timeframe: TBD
[2020-08-23] MEDS ORDERED: INSULIN GLARGINE,HUM.REC.ANLOG 1,000 UNIT/10 ML VIAL (PYX) SUBCUT SCH (17:30)
[2020-08-23] MEDS: REMDESIVIR 100 MG in NORMAL SALINE 250 ML IV SCH (21:43)
[2020-08-23] MEDS: ATORVASTATIN CALCIUM 40 MG TABLET PO SCH (21:43)
[2020-08-24 06:17] LABS: ABSOLUTE EOSINOPHILS # (AUTO) 0.1 10^3/uL (0.0-0.6); ABSOLUTE LYMPHOCYTES (AUTO) 1.1 10^3/uL (0.5-4.7); ABSOLUTE MONOCYTES (AUTO) 0.5 10^3/uL (0.1-1.4); ABSOLUTE NEUT (AUTO) 4.1 10^3/uL (1.7-8.2); BASOPHILS % (AUTO) 0.2 % (0-2); EOSINOPHILS % (AUTO) 1.9 % (0-6); HEMATOCRIT 36.5 % (37.9-51.0); HEMOGLOBIN 12.4 g/dL (13.5-17.0); LYMPHOCYTES % (AUTO) 18.7 % (13-45); MEAN CORPUSCULAR HEMOGLOBIN 27.2 pg (27.0-33.4); MEAN CORPUSCULAR VOLUME 80 fl (80-97); MONOCYTES % (AUTO) 9.2 % (3-13); PLATELET COUNT 393 10^3/uL (150-450); RED BLOOD COUNT 4.56 10^6/uL (4.35-5.55); RED CELL DISTRIBUTION WIDTH 15.9 % (11.5-14.0); TOTAL CELLS COUNTED % (AUTO) 100 %; WHITE BLOOD COUNT 5.9 10^3/uL (4.0-10.5)
[2020-08-24 06:45] LABS: ALBUMIN 3.1 g/dL (3.5-5.0); ALKALINE PHOSPHATASE 63 U/L (38-126); ANION GAP 10 (5-19); ASPARTATE AMINO TRANSFERASE 17 U/L (17-59); BILIRUBIN,DIRECT 0.1 mg/dL (0.0-0.4); BILIRUBIN,TOTAL 0.5 mg/dL (0.2-1.3); BLOOD UREA NITROGEN 15 mg/dL (7-20); C-REACTIVE PROTEIN 33.1 mg/L (<10.0); CALCIUM 8.8 mg/dL (8.4-10.2); CARBON DIOXIDE 21 mmol/L (22-30); CHLORIDE 105 mmol/L (98-107); GLUCOSE 121 mg/dL (75-110); POTASSIUM 4.3 mmol/L (3.6-5.0)
[2020-08-24] MEDS: INSULIN LISPRO 100 UNIT/ML 3 ML VIAL SUBCUT SCH ×4 (08:35→22:00)
[2020-08-24] MEDS: METOPROLOL TARTRATE 25 MG TABLET PO SCH ×2 (09:12→22:00)
[2020-08-24] MEDS: ASPIRIN 81 MG TABLET, ENT COATED PO SCH (09:12)
[2020-08-24] MEDS: LISINOPRIL 10 MG TABLET PO SCH (09:12)
[2020-08-24] MEDS: ENOXAPARIN SODIUM INJ 40 MG/0.4 ML DISP.SYRIN SUBCUT SCH (09:12)
[2020-08-24] MEDS: DEXAMETHASONE SOD PHOSPHATE INJ 4 MG/1 ML VIAL IV SCH (09:13)
[2020-08-24] MEDS: PRASUGREL HCL 10 MG TABLET PO SCH (10:26)
[2020-08-24] MEDS: INSULIN GLARGINE,HUM.REC.ANLOG 1,000 UNIT/10 ML VIAL SUBCUT SCH (11:39)
--- NOTE | 2020-08-24 18:10 | PDOC PROGRESS REPORT ---
Subjective Date:: 08/24/20 Subjective:: FERCHO JOE is a 64 year old male with a history of coronary artery disease, jke-wwzkjoa-ihyzumyqd type 2 diabetes mellitus, and hypertension, who smoked for over 35 years but quit 15 years ago, who was admitted 08/20/2020 with acute respiratory failure with hypoxia secondary to Covid pneumonia. Patient was seen on afternoon rounds. He was found to be resting in bed comfo rtably, on supplemental oxygen at 4 L/min; he is not home O2 dependent. He denies dyspnea at rest but reports that he does become short of breath very quickly with minimal activity. He reports an occasional cough, although this is improved. Overall, he states that he is feeling significantly better. He denies fever, chills, chest pain, palpitation, abdominal pain, nausea vomiting and diarrhea. He has no questions or concerns at this time. No concerns per nursing. Reason For Visit: ACUTE RESPIRATORY FAILURE DUE TO COVID 19 Physical Exam Vital Signs: Temp Pulse Resp BP Pulse Ox 98.2 F 79 24 H 108/58 L 92 08/24/20 16:00 08/24/20 13:44 08/24/20 16:00 08/24/20 16:00 08/24/20 16:55 Intake & Output 08/23/20 08/24/20 08/25/20 06:59 06:59 06:59 Intake Total 2111 2029 Balance 2111 2029 Weight 94.6 kg 95.1 kg General appearance: PRESENT: no acute distress, cooperative, well-developed, well-nourished Head exam: PRESENT: atraumatic, normocephalic Eye exam: PRESENT: conjunctiva pink, EOMI, PERRLA. ABSENT: scleral icterus Mouth exam: PRESENT: moist, tongue midline Respiratory exam: PRESENT: clear to auscultation dilip, symmetrical, unlabored, other - supplemental oxygen via NC. ABSENT: rales, rhonchi, wheezes Cardiovascular exam: PRESENT: RRR. ABSENT: diastolic murmur, rubs, systolic murmur Pulses: PRESENT: normal dorsalis pedis pul Vascular exam: PRESENT: normal capillary refill Extremities exam: PRESENT: full ROM. ABSENT: calf tenderness, clubbing, pedal edema Musculoskeletal exam: PRESENT: ambulatory Neurological exam: PRESENT: alert, awake, oriented to person, oriented to place, oriented to time, oriented to situation, CN II-XII grossly intact. ABSENT: motor sensory deficit Psychiatric exam: PRESENT: appropriate affect, normal mood. ABSENT: homicidal ideation, suicidal ideation Skin exam: PRESENT: dry, intact, warm. ABSENT: cyanosis, rash Results Laboratory Results: 08/24/20 05:50 08/24/20 05:50 08/24/20 08/24/20 05:50 05:50 WBC 5.9 RBC 4.56 Hgb 12.4 L Hct 36.5 L MCV 80 MCH 27.2 MCHC 34.0 RDW 15.9 H Plt Count 393 Seg Neutrophils % 70.0 Sodium 136.2 L Potassium 4.3 Chloride 105 Carbon Dioxide 21 L Anion Gap 10 BUN 15 Creatinine 0.61 Est GFR ( Amer) > 60 Glucose 121 H Calcium 8.8 Ferritin 265.00 Total Bilirubin 0.5 AST 17 Alkaline Phosphatase 63 C-Reactive Protein 33.1 H Total Protein 6.0 L Albumin 3.1 L 08/20/20 08/21/20 18:58 00:17 Troponin I 0.042 0.032 Impressions: Chest X-Ray 08/20/20 17:16 IMPRESSION: Left basilar opacities consistent with covid 19. Assessment and Plan - Diagnosis (1) Pneumonia due to COVID-19 virus Is this a current diagnosis for this admission?: Yes Plan: -Confirmed Covid pneumonia testing 2 weeks prior -X-ray consistent with COVID-19 pneumonia CRP 143.7, Ferritin 440, D-dimer 0.62 Blood cultures negative. Provide supplemental oxygen as needed maintain saturations greater than 89%. As needed nebulizer treatments. Day #3 of remdesivir. Continue IV dexamethasone. Encourage pulmonary toilet. Patient was briefly on IV azithromycin and ceftriaxone for potential opportunistic bacterial pneumonia; blood cultures remain negative and he is rapidly improved; antibiotics has been discontinued. -He is full code (2) Acute respiratory failure due to COVID-19 Is this a current diagnosis for this admission?: Yes Plan: Improved; continues to require supplemental oxygen. Tachypnea has resolved. No longer dyspneic at rest. Remaining evaluation and management as above. (3) Coronary artery disease Qualifiers: Coronary Disease-Associated Artery/Lesion type: [place] artery [place] vs. transplanted heart: [place] heart Associated angina: without angina Qualified Code(s): I25.10 - Atherosclerotic heart disease of [place] coronary artery without angina pectoris Is this a current diagnosis for this admission?: Yes Plan: -Recently underwent stent placement in March Troponin 0.042 -> 0.[address] elevation Continue dual antiplatelet therapy with Effient and aspirin Continue Lipitor, lisinopril, metoprolol (4) Hypertension Qualifiers: Hypertension type: essential hypertension Qualified Code(s): I10 - Es sential (primary) hypertension Is this a current diagnosis for this admission?: Yes Plan: Well controlled Continue lisinopril and metoprolol (5) Type 2 diabetes mellitus Qualifiers: Diabetes mellitus detention insulin use: without detention use Diabetes mellitus complication status: with circulatory complication Diabetes mellitus complication detail: with other circulatory complications Qualified Code(s): E11.59 - Type 2 diabetes mellitus with other circulatory complications Is this a current diagnosis for this admission?: Yes Plan: He was on Trulicity and empagliflozin/Metformin home. We will hold this medications while he is admitted - started low dose lantus 10 u daily - continue SSI -Accu-Checks and hypoglycemia protocol - consistent carb/cardiac diet. (6) Leukopenia Qualifiers: Leukopenia type: lymphocytopenia Qualified Code(s): D72.810 - Lymphocytopenia Is this a current diagnosis for this admission?: Yes Plan: RESOLVED WBC count 1.6 mainly lympophenia and mild neutropenia - this is likely 2/2 to his COVID - will continue to monitor - Time Time Spent with patient: 25-34 minutes Medications reviewed and adjusted accordingly: Yes Anticipated Discharge Disposition: Home, Self Care Anticipated Discharge Timeframe: TBD
[2020-08-24] MEDS: ATORVASTATIN CALCIUM 40 MG TABLET PO SCH (22:01)
[2020-08-24] MEDS: REMDESIVIR 100 MG in NORMAL SALINE 250 ML IV SCH (22:01)
[2020-08-25 07:10] LABS: ALBUMIN 3.5 g/dL (3.5-5.0); ALKALINE PHOSPHATASE 71 U/L (38-126); ANION GAP 11 (5-19); ASPARTATE AMINO TRANSFERASE 21 U/L (17-59); BILIRUBIN,DIRECT 0.1 mg/dL (0.0-0.4); BILIRUBIN,TOTAL 0.6 mg/dL (0.2-1.3); BLOOD UREA NITROGEN 18 mg/dL (7-20); C-REACTIVE PROTEIN 25.8 mg/L (<10.0); CALCIUM 9.6 mg/dL (8.4-10.2); CARBON DIOXIDE 21 mmol/L (22-30); CHLORIDE 103 mmol/L (98-107); GLUCOSE 157 mg/dL (75-110); POTASSIUM 4.6 mmol/L (3.6-5.0); TOTAL PROTEIN 6.7 g/dL (6.3-8.2)
[2020-08-25 07:17] LABS: ABSOLUTE EOSINOPHILS # (AUTO) 0.1 10^3/uL (0.0-0.6); ABSOLUTE MONOCYTES (AUTO) 0.5 10^3/uL (0.1-1.4); ABSOLUTE NEUT (AUTO) 6.3 10^3/uL (1.7-8.2); BASOPHILS % (AUTO) 0.1 % (0-2); EOSINOPHILS % (AUTO) 0.9 % (0-6); HEMATOCRIT 41.3 % (37.9-51.0); HEMOGLOBIN 13.7 g/dL (13.5-17.0); MEAN CORPUSCULAR HEMOGLOBIN 26.5 pg (27.0-33.4); MEAN CORPUSCULAR HGB CONC 33.1 g/dL (32.0-36.0); MEAN CORPUSCULAR VOLUME 80 fl (80-97); MONOCYTES % (AUTO) 6.5 % (3-13); PLATELET COUNT 495 10^3/uL (150-450); RED BLOOD COUNT 5.16 10^6/uL (4.35-5.55); RED CELL DISTRIBUTION WIDTH 16.1 % (11.5-14.0); SEGMENTED NEUTROPHILS % (AUTO) 79.5 % (42-78); TOTAL CELLS COUNTED % (AUTO) 100 %; WHITE BLOOD COUNT 7.9 10^3/uL (4.0-10.5)
[2020-08-25] MEDS: INSULIN LISPRO 100 UNIT/ML 3 ML VIAL SUBCUT SCH ×4 (11:16→21:25)
[2020-08-25] MEDS: ASPIRIN 81 MG TABLET, ENT COATED PO SCH (11:17)
[2020-08-25] MEDS: LISINOPRIL 10 MG TABLET PO SCH (11:17)
[2020-08-25] MEDS: DEXAMETHASONE SOD PHOSPHATE INJ 4 MG/1 ML VIAL IV SCH (11:17)
[2020-08-25] MEDS: ENOXAPARIN SODIUM INJ 40 MG/0.4 ML DISP.SYRIN SUBCUT SCH (11:17)
[2020-08-25] MEDS: INSULIN GLARGINE,HUM.REC.ANLOG 1,000 UNIT/10 ML VIAL SUBCUT SCH (11:17)
[2020-08-25] MEDS: METOPROLOL TARTRATE 25 MG TABLET PO SCH ×2 (11:18→21:24)
[2020-08-25] MEDS: PRASUGREL HCL 10 MG TABLET PO SCH (14:37)
--- NOTE | 2020-08-25 16:50 | RADIOLOGY REPORT (SQ) ---
EXAM DESCRIPTION: CHEST SINGLE VIEW IMAGES COMPLETED DATE/TIME: 08/25/2020 4:27 pm REASON FOR STUDY: hypoxia COMPARISON: AP view of the chest from 08/20/2020. EXAM PARAMETERS: NUMBER OF VIEWS: One view. TECHNIQUE: An AP view of the chest was obtained. RADIATION DOSE: NA LIMITATIONS: None. FINDINGS: LUNGS AND PLEURA: Increased peripheral opacities in the right lung. The opacities in left lung are unchanged. There is no sizable pleural effusion or pneumothorax. MEDIASTINUM AND HILAR STRUCTURES: Stable mediastinal and hilar contours. HEART AND VASCULAR STRUCTURES: Stable cardiac silhouette. BONES: No acute findings. HARDWARE: None in the chest. OTHER: No other finding. IMPRESSION: Increased peripheral opacities in the right lung. TECHNICAL DOCUMENTATION: JOB ID: [id number] 2010 [employer]- All Rights Reserved Reading location - IP/workstation name: [email or web address]
[2020-08-25] MEDS: ASCORBIC ACID 500 MG TABLET PO SCH (17:41)
--- NOTE | 2020-08-25 18:49 | PDOC PROGRESS REPORT ---
Subjective Date:: 08/25/20 Subjective:: FERCHO JOE is a 64 year old male with a history of coronary artery disease, [id number] type 2 diabetes mellitus, and hypertension, who smoked for over 35 years but quit 15 years ago, who was admitted 08/20/2020 with acute respiratory failure with hypoxia secondary to Covid pneumonia. Patient was seen on afternoon rounds. He was found to be resting in bed comfo rtably, on supplemental oxygen at 2 L/min; did require 4-5 lpm overnight and throughout much of the day. He is not home O2 dependent. He denies dyspnea at rest but reports that he does become short of breath very quickly with minimal activity. He reports an occasional cough, although this is improved. Overall, he states that he is feeling significantly better. Hopeful to d/c home tomorrow. He denies fever, chills, chest pain, palpitation, abdominal pain, nausea vomiting and diarrhea. He has no questions or concerns at this time. No concerns per nursing. Reason For Visit: ACUTE RESPIRATORY FAILURE DUE TO COVID 19 Physical Exam Vital Signs: Temp Pulse Resp BP Pulse Ox 97.4 F 67 19 113/78 99 08/25/20 16:53 08/25/20 16:53 08/25/20 16:53 08/25/20 16:53 08/25/20 16:53 Intake & Output 08/24/20 08/25/20 08/26/20 06:59 06:59 06:59 Intake Total 2029 990 600 Balance 2029 990 600 Weight 95.1 kg 94.7 kg General appearance: PRESENT: no acute distress, cooperative, well-developed, well-nourished Head exam: PRESENT: atraumatic, normocephalic Eye exam: PRESENT: conjunctiva pink, EOMI, PERRLA. ABSENT: scleral icterus Mouth exam: PRESENT: moist, tongue midline Respiratory exam: PRESENT: clear to auscultation dilip, symmetrical, unlabored, other - supplemental oxygen via NC. ABSENT: rales, rhonchi, wheezes Cardiovascular exam: PRESENT: RRR. ABSENT: diastolic murmur, rubs, systolic murmur Pulses: PRESENT: normal dorsalis pedis pul Vascular exam: PRESENT: normal capillary refill Extremities exam: PRESENT: full ROM. ABSENT: calf tenderness, clubbing, pedal edema Musculoskeletal exam: PRESENT: ambulatory Neurological exam: PRESENT: alert, awake, oriented to person, oriented to place, oriented to time, oriented to situation, CN II-XII grossly intact. ABSENT: motor sensory deficit Psychiatric exam: PRESENT: appropriate affect, normal mood. ABSENT: homicidal ideation, suicidal ideation Skin exam: PRESENT: dry, intact, warm. ABSENT: cyanosis, rash Results Laboratory Results: 08/25/20 05:57 08/25/20 05:57 08/25/20 08/25/20 05:57 05:57 WBC 7.9 RBC 5.16 Hgb 13.7 Hct 41.3 MCV 80 MCH 26.5 L MCHC 33.1 RDW 16.1 H Plt Count 495 H Seg Neutrophils % 79.5 H Sodium 134.5 L Potassium 4.6 Chloride 103 Carbon Dioxide 21 L Anion Gap 11 BUN 18 Creatinine 0.64 Est GFR ( Amer) > 60 Glucose 157 H Calcium 9.6 Ferritin 277.00 Total Bilirubin 0.6 AST 21 Alkaline Phosphatase 71 C-Reactive Protein 25.8 H Total Protein 6.7 Albumin 3.5 08/20/20 08/21/20 18:58 00:17 Troponin I 0.042 0.032 Impressions: Chest X-Ray 08/25/20 00:00 IMPRESSION: Increased peripheral opacities in the right lung. Assessment and Plan - Diagnosis (1) Pneumonia due to COVID-19 virus Is this a current diagnosis for this admission?: Yes Plan: -Confirmed Covid pneumonia testing 2 weeks prior -X-ray consistent with COVID-19 pneumonia CRP 143.7, Ferritin 440, D-dimer 0.62 Blood cultures negative. Provide supplemental oxygen as needed maintain saturations greater than 89%. As needed nebulizer treatments. Completed course of remdesivir. Continue IV dexamethasone. Encourage pulmonary toilet. Patient was briefly on IV azithromycin and ceftriaxone for potential opportunistic bacterial pneumonia; blood cultures remain negative and he is rapidly improved; antibiotics has been discontinued. -He is full code (2) Acute respiratory failure due to COVID-19 Is this a current diagnosis for this admission?: Yes Plan: Improved; continues to require supplemental oxygen. Tachypnea has resolved. No longer dyspneic at rest. CXR showed worsened opacity to the right. Will check BNP w/ am lab work Remaining evaluation and management as above. (3) Coronary artery disease Qualifiers: Coronary Disease-Associated Artery/Lesion type: council artery [place] vs. transplanted heart: council heart Associated angina: without angina Qualified Code(s): I25.10 - Atherosclerotic heart disease of council coronary artery without angina pectoris Is this a current diagnosis for this admission?: Yes Plan: -Recently underwent stent placement in March Troponin 0.042 -> 0.[address] elevation Continue dual antiplatelet therapy with Effient and aspirin Continue Lipitor, lisinopril, metoprolol (4) Hypertension Qualifiers: Hypertension type: essential hypertension Qualified Code(s): I10 - Essential (primary) hypertension Is this a current diagnosis for this admission?: Yes Plan: Well controlled Continue lisinopril and metoprolol (5) Type 2 diabetes mellitus Qualifiers: Diabetes mellitus long-term insulin use: without long-term use Diabetes mellitus complication status: with circulatory complication Diabetes mellitus complication detail: with other circulatory complications Qualified Code(s): E11.59 - Type 2 diabetes mellitus with other circulatory complications Is this a current diagnosis for this admission?: Yes Plan: He was on Trulicity and empagliflozin/Metformin home. We will hold this medications while he is admitted - started low dose lantus 10 u daily - continue SSI -Accu-Checks and hypoglycemia protocol - consistent carb/cardiac diet. (6) Leukopenia Qualifiers: Leukopenia type: lymphocytopenia Qualified Code(s): D72.810 - Lymphocytopenia Is this a current diagnosis for this admission?: Yes Plan: RESOLVED WBC count 1.6 mainly lympophenia and mild neutropenia - this is likely 2/2 to his COVID - will continue to monitor - Time Time Spent with patient: 25-34 minutes Medications reviewed and adjusted accordingly: Yes Anticipated Discharge Disposition: Home, Self Care Anticipated Discharge Timeframe: within 48 hours
[2020-08-25] MEDS: ATORVASTATIN CALCIUM 40 MG TABLET PO SCH (21:24)
[2020-08-25] MEDS ORDERED: MELATONIN 3 MG TABLET PO SCH (22:00)
[2020-08-25] MEDS ORDERED: TRAZODONE HCL 50 MG TABLET PO SCH (22:00)
[2020-08-26 06:17] LABS: ABSOLUTE EOSINOPHILS # (AUTO) 0.1 10^3/uL (0.0-0.6); ABSOLUTE LYMPHOCYTES (AUTO) 1.4 10^3/uL (0.5-4.7); ABSOLUTE MONOCYTES (AUTO) 0.6 10^3/uL (0.1-1.4); ABSOLUTE NEUT (AUTO) 4.5 10^3/uL (1.7-8.2); BASOPHILS % (AUTO) 0.1 % (0-2); EOSINOPHILS % (AUTO) 1.8 % (0-6); HEMATOCRIT 38.1 % (37.9-51.0); HEMOGLOBIN 12.9 g/dL (13.5-17.0); LYMPHOCYTES % (AUTO) 20.7 % (13-45); MEAN CORPUSCULAR HGB CONC 33.8 g/dL (32.0-36.0); MEAN CORPUSCULAR VOLUME 80 fl (80-97); PLATELET COUNT 471 10^3/uL (150-450); RED BLOOD COUNT 4.76 10^6/uL (4.35-5.55); RED CELL DISTRIBUTION WIDTH 15.7 % (11.5-14.0); SEGMENTED NEUTROPHILS % (AUTO) 68.4 % (42-78); TOTAL CELLS COUNTED % (AUTO) 100 %; WHITE BLOOD COUNT 6.6 10^3/uL (4.0-10.5)
[2020-08-26 06:39] LABS: ALBUMIN 3.3 g/dL (3.5-5.0); ALKALINE PHOSPHATASE 61 U/L (38-126); ANION GAP 12 (5-19); ASPARTATE AMINO TRANSFERASE 18 U/L (17-59); BILIRUBIN,DIRECT 0.2 mg/dL (0.0-0.4); BILIRUBIN,TOTAL 0.8 mg/dL (0.2-1.3); BLOOD UREA NITROGEN 20 mg/dL (7-20); C-REACTIVE PROTEIN 11.8 mg/L (<10.0); CALCIUM 9.3 mg/dL (8.4-10.2); CARBON DIOXIDE 21 mmol/L (22-30); CHLORIDE 102 mmol/L (98-107); GLUCOSE 136 mg/dL (75-110); TOTAL PROTEIN 6.3 g/dL (6.3-8.2)
[2020-08-26] MEDS: INSULIN LISPRO 100 UNIT/ML 3 ML VIAL SUBCUT SCH ×2 (08:20→11:59)
[2020-08-26] MEDS: METOPROLOL TARTRATE 25 MG TABLET PO SCH (09:36)
[2020-08-26] MEDS: DEXAMETHASONE SOD PHOSPHATE INJ 4 MG/1 ML VIAL IV SCH (09:36)
[2020-08-26] MEDS: LISINOPRIL 10 MG TABLET PO SCH (09:36)
[2020-08-26] MEDS: PRASUGREL HCL 10 MG TABLET PO SCH (09:37)
[2020-08-26] MEDS: ENOXAPARIN SODIUM INJ 40 MG/0.4 ML DISP.SYRIN SUBCUT SCH (09:37)
[2020-08-26] MEDS: ASCORBIC ACID 500 MG TABLET PO SCH (09:37)
[2020-08-26] MEDS: ASPIRIN 81 MG TABLET, ENT COATED PO SCH (09:37)
[2020-08-26] MEDS ORDERED: CHOLECALCIFEROL (D3) 1,000 UNIT (25 MCG) TABLET PO SCH (10:00)
[2020-08-26] MEDS ORDERED: ZINC SULFATE 220 MG CAPSULE PO SCH (10:00)
[2020-08-26] MEDS: INSULIN GLARGINE,HUM.REC.ANLOG 1,000 UNIT/10 ML VIAL SUBCUT SCH (10:30)
[2020-08-26 13:37] VITALS: BP 108/58
--- NOTE | 2020-08-26 18:02 | PDOC DISCHARGE SUMMARY ---
Impression - Admit/DC Date/PCP Admission Date/Primary Care Provider: 08/20/20 22:07 Discharge Date: 08/26/20 - Discharge Diagnosis (1) Pneumonia due to COVID-19 virus Is this a current diagnosis for this admission?: Yes (2) Acute respiratory failure due to COVID-19 Is this a current diagnosis for this admission?: Yes (3) Coronary artery disease Is this a current diagnosis for this admission?: Yes (4) Hypertension Is this a current diagnosis for this admission?: Yes (5) Type 2 diabetes mellitus Is this a current diagnosis for this admission?: Yes (6) Leukopenia Is this a current diagnosis for this admission?: Yes - Additional Information Discharge Diet: Cardiac, Diabetic Discharge Activity: Activity As Tolerated, Balance Activity w/Rest, Slowly Increase Activity Referrals: KEVEN ZHU MD [NO LOCAL MD] - (left message to schedule 12-4 (9:00)) Prescriptions: Prednisone [Deltasone 20 mg Tablet] 20 mg PO ASDIR PRN #6 tablet PRN Reason: Trazodone HCl [Desyrel 50 mg Tablet] 50 mg PO QHS #30 tablet Albuterol Sulfate [Ventolin Hfa 8 gm Mdi] 2 puff IH Q6HP PRN #1 inhaler PRN Reason: Shortness Of Breath Ascorbic Acid [Vitamin C 500 mg Tablet] 500 mg PO BID #60 tablet Cholecalciferol (Vitamin D3) [Vitamin D3 1000 Unit Tablet] 1,000 unit PO DAILY #30 tablet Zinc Sulfate [Zinc-220 Capsule] 220 mg PO DAILY #30 capsule Home Medications: Aspirin [Ecotrin 81 mg EC Tablet] 81 mg PO DAILY 08/20/20 Atorvastatin Calcium [Lipitor 40 mg Tablet] 40 mg PO QHS 08/20/20 Cyclobenzaprine HCl 5 mg PO TIDP PRN 08/20/20 Dulaglutide [Trulicity] 0.75 mg SUBCUT KOLB@1000 08/20/20 Empagliflozin/Metformin HCl [Synjardy Xr 12.5-1,000 mg Tab] 2 each PO QAM 08/20/20 Lisinopril [Prinivil 10 mg Tablet] 20 mg PO DAILY 08/20/20 Metoprolol Tartrate [Lopressor 25 mg Tablet] 12.5 mg PO Q12 08/20/20 Nitroglycerin [Nitrostat 0.4 mg (1/150 Gr) Tabs 25/Bottle] 1 tab SL Q5MP PRN 08/20/20 Omeprazole 40 mg PO BID 08/20/20 Prasugrel HCl [Effient 10 mg Tablet] 10 mg PO DAILY 08/20/20 Acetaminophen [Tylenol 325 mg Tablet] 650 mg PO Q4HP PRN tablet 08/25/20 Albuterol Sulfate [Ventolin Hfa 8 gm Mdi] 2 puff IH Q6HP PRN #1 inhaler 08/25/20 Prednisone [Deltasone 20 mg Tablet] 20 mg PO ASDIR PRN #6 tablet 08/25/20 Ascorbic Acid [Vitamin C 500 mg Tablet] 500 mg PO BID #60 tablet 08/26/20 Cholecalciferol (Vitamin D3) [Vitamin D3 1000 Unit Tablet] 1,000 unit PO DAILY #30 tablet 08/26/20 Trazodone HCl [Desyrel 50 mg Tablet] 50 mg PO QHS #30 tablet 08/26/20 Zinc Sulfate [Zinc-220 Capsule] 220 mg PO DAILY #30 capsule 08/26/20 History of Present Illiness History of Present Illness: Per H&P by Dr. Harris: FERCHO JOE is a 64 year old male with a history of coronary artery disease, [id number] type 2 diabetes mellitus, and hypertension, who smoked for over 35 years but quit 15 years ago, who presents with approximately 1 week of progressive shortness of breath. He said that his tested positive for coronavirus almost 3 weeks ago, and he had been quarantined at home with her at him been checking his temperature every day. He said that a week ago this past Sunday, 12 days ago at this point, he checked his temperature and even though he did not have a fever it was elevated a bit. He went to [facility] and got tested. He said for what ever reason he did not get his test results until this past Sunday, 8 days after he was tested. At that time he was still feeling pretty much okay. He said that he noted a little bit of shortness of breath with exertion but at the time he found out his positive result he still was doing pretty well. No fevers at that time. He s aid that over the past 5 days he has developed worsening shortness of breath with exertion to the point that he gets short of breath just walking a short distance to his bathroom from his bedroom. He said when he is at rest he feels fine. He has also had some nausea, vomiting, and diarrhea. He was also put on Augmentin a few days ago for possible otitis media, but he said he had had some vomiting and diarrhea before he started the Augmentin. He is not really having any nausea now. He has not experienced any body aches or muscle soreness. He has not noticed a loss of sense of taste or smell. When he got to the ER he had an SPO2 of 86% on room air. He was also mildly tachycardic. He said that he had a history of 2 cardiac stents, the most recent was in March of this year. He was supposed to be on aspirin plus some other antiplatelet agent, he does not know the name of it, but he knows he supposed to be on it for at least 1 year with the aspirin. He said he also takes metoprolol twice a day and lisinopril once a day. For his diabetes he takes Trulicity and Synjarda. Hospital Course Hospital Course: (1) Pneumonia due to COVID-19 virus Confirmed Covid pneumonia testing 2 weeks prior Repeat COVD positive on 08/20/20 Chest xrays are consistent with COVID-19 pneumonia CRP 143.7, Ferritin 440, D-dimer 0.62 Blood cultures negative. Patient was admitted to medical floor on continuous cardiac telemetry and pulse oximetry. He was supported with supplemental oxygen, as needed nebulizer treatments, and pulmonary toilet. Patient was briefly on IV azithromycin and ceftriaxone for potential opportunistic bacterial pneumonia. Blood cultures remain negative; antibiotics were discontinued. Completed course of remdesivir. Received IV dexamethasone; discharged on prednisone blanche. Supported with Vit C, Vit D, Melatonin, and Zinc supplementation. Continue ASA and Statin therapy. (2) Acute respiratory failure due to COVID-19 Sigificantly improved; continues to require supplemental oxygen at 2lpm. Overnight pulse oximetry study confirmed that patient desatted while on room air, however, maintained adequate oxygen saturations on supplemental oxygen by nasal cannula at 2 L/min. Follow up CXR showed worsened opacity to the right. proBNP nml. Patient will likely have a prolonged recovery related to COVID-19 infection. He was encouraged to continue incentive spirometer and flutter valve at home. Advised to avoid known respiratory triggers. Discharged with Ventolin HFA rescue inhaler. Discussed warning signs and red flags to seek medical attention. 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 (4) Hypertension Well controlled Continue home dose lisinopril and metoprolol (5) Type 2 diabetes mellitus Managed w/ Lantus 10 units daily and sliding scale insulin. To resume home medication regiment at discharge. (6) Leukopenia RESOLVED WBC count 1.6 mainly lympophenia and mild neutropenia - this is likely 2/2 to his COVID Routine follow up labs per PCP. Physical Exam Vital Signs: Temp Pulse Resp BP Pulse Ox 97.4 F 59 L 22 H 108/58 L 90 L 08/26/20 13:39 08/26/20 13:39 08/26/20 13:39 08/26/20 13:39 08/26/20 13:39 Pulse Oximeter Nocturnal Start: 08/25/20 16:59 Freq: RTQ4 Status: Complete Protocol: Document 08/26/20 05:07 [facility] (Rec: 08/26/20 05:07 [facility] [id number]) Nocturnal Pulse Oximetry Equipment Usage Equipment Discontinued Continuous SpO2 Machine # [id number] Intake & Output 08/25/20 08/26/20 08/27/20 06:59 06:59 06:59 Intake Total 990 960 Balance 990 960 Weight 94.7 kg 95.4 kg General appearance: PRESENT: no acute distress, cooperative - Pleasant, well- developed, well-nourished - Overweight Head exam: PRESENT: atraumatic, normocephalic Eye exam: PRESENT: conjunctiva pink, EOMI, PERRLA. ABSENT: scleral icterus Mouth exam: PRESENT: moist, tongue midline Neck exam: ABSENT: carotid bruit, JVD, lymphadenopathy, thyromegaly Respiratory exam: PRESENT: clear to auscultation dilip, symmetrical, unlabored, other - Supplemental oxygen by nasal cannula. ABSENT: rales, rhonchi, wheezes Cardiovascular exam: PRESENT: RRR, +S1, +S2. ABSENT: diastolic murmur, rubs, systolic murmur Vascular exam: PRESENT: normal capillary refill Extremities exam: PRESENT: full ROM. ABSENT: calf tenderness, clubbing, pedal edema Musculoskeletal exam: PRESENT: ambulatory Neurological exam: PRESENT: alert, awake, oriented to person, oriented to place, oriented to time, oriented to situation, CN II-XII grossly intact. ABSENT: motor sensory deficit Psychiatric exam: PRESENT: appropriate affect, normal mood. ABSENT: homicidal ideation, suicidal ideation Skin exam: PRESENT: dry, intact, warm. ABSENT: cyanosis, rash Results Laboratory Results: WBC 6.6 10^3/uL (4.0-10.5) 08/26/20 05:21 RBC 4.76 10^6/uL (4.35-5.55) 08/26/20 05:21 Hgb 12.9 g/dL (13.5-17.0) L 08/26/20 05:21 Hct 38.1 % (37.9-51.0) 08/26/20 05:21 MCV 80 fl (80-97) 08/26/20 05:21 MCH 27.0 pg (27.0-33.4) 08/26/20 05:21 MCHC 33.8 g/dL (32.0-36.0) 08/26/20 05:21 RDW 15.7 % (11.5-14.0) H 08/26/20 05:21 Plt Count 471 10^3/uL (150-450) H 08/26/20 05:21 Lymph % (Auto) 20.7 % (13-45) 08/26/20 05:21 [place] % (Auto) 9.0 % (3-13) 08/26/20 05:21 Eos % (Auto) 1.8 % (0-6) 08/26/20 05:21 Baso % (Auto) 0.1 % (0-2) 08/26/20 05:21 Absolute Neuts (auto) 4.5 10^3/uL (1.7-8.2) 08/26/20 05:21 Absolute Lymphs (auto) 1.4 10^3/uL (0.5-4.7) 08/26/20 05:21 Absolute Monos (auto) 0.6 10^3/uL (0.1-1.4) 08/26/20 05:21 Absolute Eos (auto) 0.1 10^3/uL (0.0-0.6) 08/26/20 05:21 Absolute Basos (auto) 0.0 10^3/uL (0.0-0.2) 08/26/20 05:21 Total Counted 50 08/21/20 06:11 Seg Neutrophils % 68.4 % (42-78) 08/26/20 05:21 Seg Neuts % (Manual) 80 % (42-78) H 08/21/20 06:11 Lymphocytes % (Manual) 16 % (13-45) 08/21/20 06:11 Monocytes % (Manual) 4 % (3-13) 08/21/20 06:11 Eosinophils % (Manual) 0 % (0-6) 08/21/20 06:11 Basophils % (Manual) 0 % (0-2) 08/21/20 06:11 Abs Neuts (Manual) 1.3 10^3/uL (1.7-8.2) L 08/21/20 06:11 Abs Lymphs (Manual) 0.3 10^3/uL (0.5-4.7) L 08/21/20 06:11 Abs Monocytes (Manual) 0.1 10^3/uL (0.1-1.4) 08/21/20 06:11 Absolute Eos (Manual) 0.0 10^3/uL (0.0-0.6) 08/21/20 06:11 Abs Basophils (Manual) 0.0 10^3/uL (0.0-0.2) 08/21/20 06:11 Platelet Comment ADEQUATE 08/21/20 06:11 Polychromasia SLIGHT 08/21/20 06:11 Hypochromasia SLIGHT 08/21/20 06:11 Anisocytosis 1+ 08/21/20 06:11 Microcytosis SLIGHT 08/21/20 06:11 D-Dimer 0.51 ug/mL (0.00-0.50) H 08/25/20 05:57 Sodium 134.6 mmol/L (137-145) L 08/26/20 05:21 Potassium 5.0 mmol/L (3.6-5.0) 08/26/20 05:21 Chloride 102 mmol/L (98-107) 08/26/20 05:21 Carbon Dioxide 21 mmol/L (22-30) L 08/26/20 05:21 Anion Gap 12 (5-19) 08/26/20 05:21 BUN 20 mg/dL (7-20) 08/26/20 05:21 Creatinine 0.64 mg/dL (0.52-1.25) 08/26/20 05:21 Est GFR ( Amer) > 60 (>60) 08/26/20 05:21 Est GFR (MDRD) Non-Af > 60 (>60) 08/26/20 05:21 Glucose 136 mg/dL (75-110) H 08/26/20 05:21 POC Glucose 138 mg/dL (70-110) H 08/26/20 11:34 Calcium 9.3 mg/dL (8.4-10.2) 08/26/20 05:21 Ferritin 255.00 ng/mL (17.9-464.0) 08/26/20 05:21 Total Bilirubin 0.8 mg/dL (0.2-1.3) 08/26/20 05:21 Direct Bilirubin 0.2 mg/dL (0.0-0.4) 08/26/20 05:21 Neonat Total Bilirubin Not Reportable 08/26/20 05:21 Neonat Direct Bilirubin Not Reportable 08/26/20 05:21 Neonat Indirect Bili Not Reportable 08/26/20 05:21 AST 18 U/L (17-59) 08/26/20 05:21 ALT 27 U/L (<50) 08/26/20 05:21 Alkaline Phosphatase 61 U/L (38-126) 08/26/20 05:21 Troponin I 0.032 ng/mL 08/21/20 00:17 C-Reactive Protein 11.8 mg/L (<10.0) H 08/26/20 05:21 NT-Pro-B Natriuret Pep 109 pg/mL (<125) 08/26/20 05:21 Total Protein 6.3 g/dL (6.3-8.2) 08/26/20 05:21 Albumin 3.3 g/dL (3.5-5.0) L 08/26/20 05:21 COVID-19 Source See comment 08/20/20 18:58 COVID-19 ([place]) DETECTED (Not Detect) A 08/20/20 18:58 Influenza A (Rapid) NEGATIVE (NEGATIVE) 08/20/20 18:58 Influenza B (Rapid) NEGATIVE (NEGATIVE) 08/20/20 18:58 Group A Strep Rapid NEGATIVE (NEGATIVE) 08/20/20 18:58 Slides for Path Review PATHOLOGIST REVIEWED 08/21/20 06:11 08/20/20 08/21/20 08/26/20 18:58 00:17 05:21 Troponin I 0.042 0.032 NT-Pro-B Natriuret Pep 109 Impressions: Chest X-Ray 08/20/20 17:16 IMPRESSION: Left basilar opacities consistent with covid 19. Chest X-Ray 08/25/20 00:00 IMPRESSION: Increased peripheral opacities in the right lung. Plan Plan of Treatment: Patient is discharged home, in stable condition, on supplemental oxygen via nasal cannula. He is advised to follow-up with his primary care provider within 1 week. He is instructed to take his medications as prescribed. We discussed warning signs and red flags to seek care or to return to the emergency department. He is advised to rest; advanced activity as tolerated. Return to emergency department as needed, for concerning symptoms. Time Spent: Greater than 30 Minutes Stroke Is this a Stroke Patient?: No Acute Heart Failure Is this a Heart Failure Patient?: No
== END 2020-08-26 14:59 | disposition home or self-care (01) | DRG 177 ==
LOC: ER 16:00 → EH 22:07 → 3S 08-21 06:40
PROVIDERS: ADMIT Family Medicine; ATTEND Registered Nurse
PROC: XW033E5 Introduction of Remdesivir Anti-infective into Peripheral Vein, Percutaneous Approach, New Technology Group 5 (ICD-10-PCS; principal; 2020-08-21)
DX: U07.1 COVID-19 (principal); J12.89 Other viral pneumonia; J96.01 Acute respiratory failure with hypoxia; Z87.891 Personal history of nicotine dependence; I10 Essential (primary) hypertension; I25.10 Atherosclerotic heart disease of native coronary artery without angina pectoris; E11.9 Type 2 diabetes mellitus without complications; D72.810 Lymphocytopenia; Z95.1 Presence of aortocoronary bypass graft; Z79.84 Long term (current) use of oral hypoglycemic drugs; Z79.899 Other long term (current) drug therapy; Z79.82 Long term (current) use of aspirin
CPT/HCPCS: 36415; 71045; 80053; 82728; 82962; 83880; 84484; 85025; 85379; 86140; 87040; 87070; 87635; 87804; 87880; 93005; 93010; 94640; 94667; 94762; 94799; 96361; 96374; 99285; C9803; J0456; J0696; J1100; J1650; J1815; J2930; J3490; J7030; J7050; J7060